=== PATIENT | male | born 1985 | race Caucasian/White ===

== ENCOUNTER → 2020-12-28 17:26 | Outpatient (CLI) | payer OTHER, SELFPAY ==
--- NOTE | ~2020-12-28 | XR_ITS ---
XR lumbar spine min 4V DATE: 12/28/2020 18:19 INDICATION: Acute midline low back pain TECHNIQUE: AP, lateral, coned lateral lumbosacral views. Bilateral oblique views. COMPARISON: None FINDINGS: The lumbar pedicles are intact. No fracture or bone destruction, spondylolysis or spondylol isthesis. The lumbar and lumbosacral interspaces are well preserved. The sacroiliac joints are normal . IMPRESSION: Normal lumbar spine Reviewed, dictated and finalized at location A. IMPRESSION: Normal lumbar spine
== END ==
PROVIDERS: Visit Provider Family Medicine
DX: M54.5 Low back pain (principal)
CPT/HCPCS: 72110

== ENCOUNTER 2024-04-22 17:37 | Emergency (ER) | payer OTHER, SELFPAY ==
[2024-04-22 17:39] VITALS: BP 167/107; PULSE 92; RESP 18; TEMP 36.2; O2SAT 98
[2024-04-22 19:56] VITALS: BP 148/104; PULSE 95; RESP 18; TEMP 36.7; O2SAT 99
--- NOTE | 2024-04-22 19:59 | ED.EYEPROB ---
HPI - Eye Problem General Chief complaint: Eye Problems Stated complaint: left eye pain Time Seen by Provider: 04/22/24 19:53 Source: patient Mode of arrival: ambulatory Limitations: no limitations History of Present Illness HPI Narrative: Patient is a 38-year-old male who presents the ED with report of left eye redness. Patient reports he was working around the house yesterday and there was a lot of dust. He began having some irritation throughout his left eye this morning, with redness and tearing. Denies pain. Denies vision changes. Does not wear contacts. Related Data Allergies Allergy/AdvReac Type Severity Reaction Status Date / Time No Known Allergies Allergy Verified 04/22/24 20:49 Review of Systems Review of Systems: All systems reviewed & are unremarkable except as noted in HPI. All systems reviewed & are unremarkable except as noted in HPI and below Exam Narrative: GENERAL: Well appearing, well-nourished, non-toxic, in no acute distress. HEAD: Normocephalic, atraumatic. EYES: Eyes PERRL/EOMI, mild conjunctival injection in L eye with some serous drainage. Conjunctiva clear in R eye. No periorbital swelling or erythema. No foreign body. No chemosis. No proptosis. RESPIRATORY: Airway patent, respirations nonlabored. CARDIOVASCULAR: Regular rate and rhythm MUSCULOSKELETAL: Moves all extremities. No gross deformities. SKIN: Warm, dry, normal color. NEURO: A&O X3. Speech clear. PSYCHIATRIC: Appropriate mood and affect. Normal interaction. Course Vital Signs Vital signs: Vital Signs Temperature 97.1 F L 04/22/24 17:39 Pulse Rate 92 04/22/24 17:39 Respiratory Rate 18 04/22/24 17:39 Blood Pressure 167/107 H 04/22/24 17:39 Pulse Oximetry 98 04/22/24 17:39 Oxygen Delivery Room Air 04/22/24 17:39 Temperature 98.0 F 04/22/24 19:56 Pulse Rate 95 04/22/24 19:56 Respiratory Rate 18 04/22/24 19:56 Blood Pressure 148/104 H 04/22/24 19:56 Pulse Oximetry 99 04/22/24 19:56 Oxygen Delivery Room Air 04/22/24 19:56 MDM - Eye Problem MDM Narrative Medical decision making narrative: No foreign body was seen on exam. Visual acuity intact. Patient denying any eye pain, vision changes. Fluorescein staining with Wood's lamp examination revealed 2 small conjunctival abrasions in left lateral eye, in 3 and 5 oclock positions. Patient will be started on ofloxacin eyedrops. Advised to have close follow-up with Ophthalmology for further evaluation. Given return precautions. Discharged in stable condition. Medical Records Attestation: I reviewed the patient's medical records. Discharge Plan Discharge Clinical Impression: Conjunctival abrasion Qualifiers: Encounter type: initial encounter Laterality: left Qualified Code(s): S05.02XA - Injury of conjunctiva and corneal abrasion without foreign body, left eye, initial encounter Patient Disposition: Home, Self-Care Condition: Stable Instructions: Antibiotic Form, Corneal Abrasion (ED), Conjunctivitis (ED) Additional Instructions: Utilize antibiotic eyedrops as prescribed. Avoid rubbing or touching eye. Follow-up with Ophthalmology for further evaluation if needed. Return to an ED if you experience worsening or severe symptoms, vision changes, vision loss, fevers, redness or swelling surrounding eye, or any other symptoms of concern. Prescriptions: New ofloxacin 0.3 % drops 2 drp EACH EYE QID Qty: 5 0RF Follow-up/Referrals: Margarita Rob - Ean Parker [Outside] Margarita Farfan [Outside] UNKNOWN,DOCTOR [Primary Care Provider] - Time of Disposition: 20:24
[2024-04-22] MEDS: OFLOXACIN 0.3% OPHTH SOLN 5 ML BTL 3 DROP LEFT EYE (21:04)
== END 2024-04-22 21:04 | disposition home or self-care (01) ==
LOC: ANHED 20:17
PROVIDERS: Emergency Provider Physician Assistant
DX: S05.02XA Injury of conjunctiva and corneal abrasion without foreign body, left eye, initial encounter (principal); X58.XXXA Exposure to other specified factors, initial encounter
CPT/HCPCS: 99283; A9270